=== PATIENT | male | born 1970 | race Caucasian/White ===

== ENCOUNTER 2016-09-28 14:17 | Outpatient (CLI) | payer OTHER ==
--- NOTE | 2016-09-28 15:20 | DIAGNOSTIC IMAGING REPORT ---
PROCEDURE: XR CHEST 2 VIEW INDICATION: PRE OP TECHNIQUE: PA and lateral views. COMPARISON: None. FINDINGS: Lungs are clear. Heart and mediastinum are normal. Thorax is normal. IMPRESSION: 1. Negative chest.
[2016-09-29] MEDS ORDERED: SERTRALINE HCL50 MG PO (16:44)
[2016-09-29] MEDS ORDERED: XYZAL5 MG PO (16:45)
[2016-09-29] MEDS ORDERED: FLONASE AL50 MCG/ACT (16:45)
== END 2016-09-28 23:00 ==
LOC: RT SRH 14:17
DX: Z01.818 Encounter for other preprocedural examination (principal); Z01.812 Encounter for preprocedural laboratory examination; Z01.810 Encounter for preprocedural cardiovascular examination; R00.1 Bradycardia, unspecified
CPT/HCPCS: 90004; 90074; 90100; 91286; 95059

== ENCOUNTER 2016-10-03 09:30 | Day surgery (SDC) | payer OTHER ==
--- NOTE | 2016-09-28 14:51 | HISTORY AND PHYSICAL ---
ADMITTED: 10/03/2016 CHIEF COMPLAINT: 1. Right knee pain HISTORY OF PRESENT ILLNESS: The patient had an injury and then some longstanding arthritis and just failure of his right knee. He has had an MRI scan that was performed in late 2015 that showed him to have a tear of the posterior horn of the medial meniscus, and he has some degenerative changes, primarily involving the medial compartment but to a lesser degree also in the patellofemoral joint and lateral compartments of the knee as well. The patient is being admitted for knee arthroscopy. We talked to him at length about the planned procedure. There is a particular concern in his case that the surgery may fail because of the arthritic change that he has. He may just continue with pain and the surgery be unsuccessful in relieving it. He understands this. Unfortunately, the only other real alternative for him would be to have a knee replacement surgery, and he is still relatively young and would much prefer to avoid doing that, as he is only 46 years of age, he is a little bit overweight, he is an active male, and so really not a particularly good candidate for total knee replacement at this point in his life. So he would like to not have a knee replacement as well, and we are planning to do an arthroscopic debridement of the knee. I explained to him the procedure, where the incisions might be, the risk of infection, of failure, of continued pain, stiffness, or swelling. He understands and accepts. We will plan to do the surgery then 2016, barring unforeseen complication or problem. MEDICAL/SURGICAL HISTORY: Past history is significant in that he has had some problems with sleep and particularly sleep apnea. He takes Sertraline 50-100 mg every night. He has been taking some Percocet for pain and also to help him sleep, just 5/325 one every 6 hours as needed. He has tried a knee brace for his knee, which has not helped him. He has a history also of psoriasis and depression. MEDICATIONS: 1. He is on no other medications. ALLERGIES: 1. NO KNOWN ALLERGIES. SOCIAL HISTORY: A nonsmoker. FAMILY HISTORY: Negative for any type of anesthesia or bleeding complications. REVIEW OF SYSTEMS: Otherwise is negative, with the exception he has had some mild congestion associated with some allergies recently, and that pretty much has resolved. He has done full review of systems and said he has not any loss of consciousness, no seizure. No problems with vision, hearing, or balance. He has not had any cough, congestion, shortness of breath, chest pain, nausea, vomiting, diarrhea, blood in his stools or urine or dysuria, and has no other musculoskeletal complaints at this time. PHYSICAL EXAMINATION: HEENT: Shows head to be normocephalic and atraumatic. His eyes are clear. His extraocular muscles are intact. His hearing is grossly normal. There is no drainage from the ear canals. The face is symmetrical. Mouth and posterior oropharynx are clear, and his teeth are in good repair. NECK: Without jugular venous distention. CHEST: Symmetrical. HEART: Regular rate and rhythm without murmur. LUNGS: Clear to auscultation. ABDOMEN: Mildly obese. His weight is 231. VITAL SIGNS: Height 72 inches, BMI of 31. His blood pressure today on exam in the clinic is 138/88. EXTREMITIES: His knee exam, I will refer you to my previous clinic notes, but his skin is intact. There are no open wounds, erythema, warmth or drainage. There is some mild edema. There is pain with range of motion. IMPRESSION: 1. Meniscal tear and degenerative arthritis of the left knee, possibly some degree of involvement with psoriatic arthritis as well PLAN: The knee arthroscopy as noted above.
[~2016-10-03] VITALS: Ht 182.9 cm; Wt 103.0 kg
[~2016-10-03 09:30] MED LIST: FLONASE AL50 MCG/ACT; SERTRALINE HCL50 MG PO; XYZAL5 MG PO
[2016-10-03] MEDS ORDERED: PERCOCET1 TA1 PO (10:43)
--- NOTE | 2016-10-03 11:55 | Postoperative Progress Note ---
Postop Progress Note Preoperate Diagnosis: Arthritis, MMT right knee Postoperative Diagnosis: Same Surgeon: Elias Blas MD Anesthesia: General ETT Findings: MMT, arthritis right knee. Procedure: Right knee arthroscopt, chondroplasty, partial medial meniscectomy. Complications? No Condition: Stable EBL: 5cc Blood Administered: 0 Specimen(s) removed? No Grafts or Implants? No . (See nursing notes for details of grafts/implants)
--- NOTE | 2016-10-03 11:58 | Provider's Discharge Care Plan ---
Problem, Goal, Plan Problem List 1. Medial meniscus, posterior horn derangement 2. Arthritis of right knee
--- NOTE | 2016-10-03 11:58 | Provider's Discharge Care Plan ---
Problem, Goal, Plan Problem List 1. Medial meniscus, posterior horn derangement 2. Arthritis of right knee
[2016-10-03 12:37] VITALS: BP 120/69
--- NOTE | 2016-10-03 14:07 | OPERATIVE REPORT ---
DATE OF SURGERY: 10/03/2016 SURGEON: KIERRA LANDEROS MD PREOPERATIVE DIAGNOSIS: 1. Arthritis and medial meniscal tear of the right knee POSTOPERATIVE DIAGNOSIS: 1. Arthritis and medial meniscal tear of the right knee PROCEDURE PERFORMED: 1. Operation proposed was right knee arthroscopy, chondroplasty, partial medial meniscectomy, and the operation performed was the same. ESTIMATED BLOOD LOSS: Less than 5 mL. COMPLICATIONS: None. PATHOLOGY SPECIMEN: None. SURGICAL TECHNIQUE: The patient was taken to the operating room. He was given a general anesthetic. The tourniquet applied to the right thigh. The leg was placed in a leg chavira and then prepped and draped in the usual sterile fashion. We made 2 small incisions of the joint line, medial and lateral to the patellar tendon, and the scope was inserted, first using a medial portal and looking across the lateral side. There was an extensive synovitis that was present, and some of the synovium was cleaned away with a shaver. We then smoothed up the rough edges. Around the meniscus, there was some fraying of the lateral meniscus, but primarily the findings in the lateral compartment were significant arthritic changes with degeneration and at least grade 2 if not grade 3 chondromalacia involving the lateral femoral condyle, which was smoothed with a shaver. I then went to the patellofemoral joint. Again, there was rather extensive synovitis, and some of the synovium was trimmed away. The articular cartilage and the patellofemoral joint, though, looked to be in very good condition and was nice and smooth, and there was just some minimal fraying and irregularity. We then went to the medial compartment, and here the patient had similar findings as on the lateral side. 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 This was smoothed as best as possible with the shaver. We then checked the anterior cruciate ligament; it was in good condition. There were no other loose bodies or abnormalities that were found. After thoroughly evacuating the knee, the instruments and scope were removed and the patient had closure of the incisions with interrupted, simple and subcuticular 3-0 Vicryl suture. After injecting the knee with a combination of 1% Xylocaine and Depo-Medrol, then he was dressed with Xeroform and ABD pads, wrapped with sterile Webril and Devan bandage, and awakened and taken to the recovery room. He is in stable condition.
== END 2016-10-03 13:38 | disposition home or self-care (01) ==
LOC: OR SRH 09:30 → SCU SRH 09:31 → OR SRH 10:00
PROVIDERS: Orthopaedic Surgery
PROC: 0SBC4ZZ Excision of Right Knee Joint, Percutaneous Endoscopic Approach (ICD-10-PCS; principal; 2016-10-03 11:30)
DX: M17.11 Unilateral primary osteoarthritis, right knee (principal); M23.203 Derangement of unspecified medial meniscus due to old tear or injury, right knee; M94.261 Chondromalacia, right knee; M65.861 Other synovitis and tenosynovitis, right lower leg
CPT/HCPCS: 29229; 29240; 50002; 60001; 70002; 80118; 80144; 80212; 80575; 82591; 83419; 83774; 84038